=== PATIENT | male | born 1950 | race Caucasian/White ===

== ENCOUNTER → 2018-09-16 | Outpatient (CLI) | payer OTHER | END | disposition home or self-care (01) | LOC: OIH 15:17 | PROVIDERS: ATTEND Family Medicine | DX: M25.571 Pain in right ankle and joints of right foot (principal) | CPT/HCPCS: 73610 ==

== ENCOUNTER → 2022-02-24 | Outpatient (CLI) | payer OTHER | END | disposition home or self-care (01) | LOC: RAH 08:17 | PROVIDERS: ATTEND Physician Assistant Medical | DX: M47.816 Spondylosis without myelopathy or radiculopathy, lumbar region (principal); M48.061 Spinal stenosis, lumbar region without neurogenic claudication; M51.36 Other intervertebral disc degeneration, lumbar region; M48.07 Spinal stenosis, lumbosacral region | CPT/HCPCS: 72148 ==

== ENCOUNTER → 2024-10-21 | Outpatient (CLI) | payer OTHER | END | disposition home or self-care (01) | LOC: SHCH 08:16 | PROVIDERS: ATTEND Student in an Organized Health Care Education/Training Program | DX: R00.2 Palpitations (principal) | CPT/HCPCS: 93306 ==

== ENCOUNTER 2024-11-14 11:18 | Day surgery (SDC) | payer OTHER ==
[2024-11-11 11:03] VITALS: BP 128/56; PULSE 91; RESP 18; TEMP 98.1
[2024-11-11 11:12] LABS: CREATININE 0.8 mg/dL (0.5-1.3); POTASSIUM 4.4 mmol/L (3.5-5.1)
[2024-11-11 11:13] LABS: BASOPHILS # (AUTO) 0.06 K/uL (0.00-0.20); BASOPHILS % (AUTO) 0.8 % (0.0-5.0); EOSINOPHILS # (AUTO) 0.13 K/uL (0.00-0.70); EOSINOPHILS % (AUTO) 1.7 % (0.0-8.0); IMMATURE GRANULOCYTE ABSOLUTE 0.03 K/uL (0-1); LYMPHOCYTES # (AUTO) 2.1 K/uL (1.0-4.8); LYMPHOCYTES % (AUTO) 28.2 % (21.0-51.0); MEAN CORPUSCULAR HGB CONC 33.3 g/dL (32.0-36.0); MEAN CORPUSCULAR VOLUME 99.1 fL (79-99); NEUTROPHILS # (AUTO) 4.2 K/uL (1.8-7.7); NEUTROPHILS % (AUTO) 55.9 % (40.0-77.0); PLATELET COUNT (AUTO) 260 K/uL (130-400); RED BLOOD CELL COUNT(AUTO) 4.64 MIL/uL (4.50-6.20); RED CELL DISTRIBUTION WIDTH 11.9 % (11.0-15.5); WHITE BLOOD COUNT (AUTO) 7.5 K/uL (4.8-10.8)
--- NOTE | 2024-11-11 11:26 | EKG ---
[facility] [place], [place] Test Date: 2024-11-11 Test Time: 11:46:30 Pat Name: EUGENIO NUNEZ Department[facility] Room: Gender: M Imaging Technologist: [id number] : 1950 Requested By: SHARRON SHANKS Order Number: [id number] Reading MD: Rosette Shanks Measurements Intervals [place] Rate: 86 P: 46 HI: 181 QRS: -38 QRSD: 100 T: 4 QT: 392 QTc: 469 Interpretive Statements Sinus rhythm Left axis deviation Low voltage, precordial leads No previous ECG available for comparison Electronically Signed On 11-12-2024 08:45:38 REEL CUTTER by Rosette Shanks Please click the below link to view image of tracing.
[2024-11-11 11:31] LABS: PROTHROMBIN TIME 10.6 SEC (9.6-11.6)
[2024-11-11 11:32] LABS: PARTIAL THROMBOPLASTIN TIME 27.1 SEC (26.3-35.5)
[2024-11-11 11:43] LABS: B-TYPE NATRIURETIC PEPTIDE 14 pg/mL (0-100)
--- NOTE | 2024-11-11 12:45 | HMCIMG ---
CHEST 1VW HISTORY: Preop COMPARISON: 04/01/2018 FINDINGS: A frontal projection of the chest was obtained. No acute pulmonary infiltrates is seen. The heart is normal in size. Prominent interstitial markings are seen. Degenerative changes are seen. No evidence of aortic calcification is seen. IMPRESSION: 1. No acute pulmonary infiltrate is seen.
[2024-11-14] VITALS (11 sets, daily range): BP systolic 122–154; BP diastolic 59–103; PULSE 80–93; RESP 12–20; TEMP 97.5–97.9
[~2024-11-14] VITALS: Ht 182.9 cm; Wt 96.7 kg
[~2024-11-14 11:18] MED LIST: AZEL137S11 NS; GLUCOSAMINE PO; IPRA21SP NS; MONT-39 PO; MULTIVITAMIN 50+ PO; OMEP20TA20 PO; VITA-427 PO
[2024-11-14] MEDS: 0.9%NACL 1000ML 1,000 ML IV SCH (11:42)
[2024-11-14] MEDS ORDERED: ACET-2521 PO (11:48)
[2024-11-14] MEDS ORDERED: niCARDIpine 25MG INJ IV ONE (13:18)
[2024-11-14] MEDS ORDERED: HEParin-NS 1,000 UNIT/500 ML 1,000 ML IV ONE (13:18)
[2024-11-14] MEDS ORDERED: HEParin 10,000 UNIT/10ML (1,000 UNIT/ML) VIAL ONE (13:18)
[2024-11-14] MEDS ORDERED: LIDOCAINE HCL 400MG/20ML VIAL ONE (13:18)
[2024-11-14] MEDS ORDERED: IOHEXOL 350 MG/ML 100ML INFUS..BTL IV ONE (13:18)
[2024-11-14] MEDS ORDERED: MIDAZOLAM HCL 1 MG/ML 2ML VIAL ONE ×2 (13:20→13:42)
[2024-11-14] MEDS ORDERED: VERAPAMIL HCL 2.5 MG/ML VIAL ONE (13:20)
[2024-11-14] MEDS ORDERED: FENTanyl CITRate PF 50 MCG/1 ML 2ML VIAL ONE (13:20)
[2024-11-14] MEDS ORDERED: NITROGLYCERIN 50MG VIAL ONE (13:21)
--- NOTE | 2024-11-14 14:06 | PRN ---
PROCEDURE REPORT DATE OF PROCEDURE: Nov 14, 2024 DRIVER SERVICE TECHNICIAN: [ Phu Shanks MD] PROCEDURE PERFORMED: Conscious sedation Ultrasound guided right radial artery access Selective left coronary artery angiogram Selective right coronary artery angiogram Left heart catheterization TR band 13 liliane over right radial artery INDICATION: PVC burden >8% and dyspnea/chest pain DESCRIPTION OF PROCEDURE: After informed consent was obtained, the patient was prepped and draped in the usual sterile fashion. A 6 [place] arterial sheath was inserted in the right radial artery using ultrasound guidance with first pass wall puncture. The arterial sheath was aspirated and flushed. A 6 [place] JL 3.5 was then advanced to the ascending aorta over an exchange length J-tip guidewire, was aspirated and flushed, and was used for selective coronary angiograms in multiple obliquities. A JR-4 was advanced in a similar fashion to the ascending aorta over the J-tipped guidewire and was used for selective right coronary angiograms in multiple oblique views with findings as outlined below. The JR-4 catheter advanced into the LV and pressures were obtained with a pull-back across the aortic valve. A TR band was placed over right radial artery. FLUOROSCOPY TIME: 2.5 min LEFT HEART HEMODYNAMICS: LVEDP 12 mm Hg and no gradient Ao CORONARY ANGIOGRAM: LEFT MAIN: Patent and 0% stenosis. Gives rise to LCx and LAD. LEFT ANTERIOR DESCENDING: Large vessel giving rise to two Diagonal branches. There is 20-30% prox LAD stenosis just after the first septal artery with GRACE 3 flow. LEFT CIRCUMFLEX: Large, dominant and gives rise to two OM branches. 20-30% proximal stenosis. OM1 has 30-40% proximal stenosis RIGHT CORONARY ARTERY: Nondominant vessel with 30-40% prox-mid stenosis. HEMOSTASIS: TR band 12 liliane over right radial artery INTERVENTIONS: None. COMPLICATIONS: None FINDINGS: Normal coronary anatomy and mild non-obstructive CAD. ESTIMATED BLOOD LOSS: 5 cc RECOMMENDATIONS/INSTRUCTIONS: Aggressive risk factor modification. Start Toprol XL for symptomatic PVCs Consider EP eval for symptomatic PVCs CONTRAST DELIVERED TO PATIENT (mL): 80cc MD TIFF Phillpi JAMES R MD Nov 14, 2024 14:06
[2024-11-14] MEDS ORDERED: DEXTROSE 50%-WATER 50 ML DISP.SYRIN IV PRN (14:30)
[2024-11-14] MEDS ORDERED: 0.9%NACL 1000ML 1,000 ML IV SCH (14:30)
[2024-11-14] MEDS ORDERED: GLUCAGON 1MG KIT 1 MG ML IM PRN (14:30)
--- NOTE | 2024-11-14 14:55 | NUR ---
AMBULATION/ELIMINATION: ASSISTED TO STANDING POSITION WITHOUT COMPLAINING OF DIZZINESS. AMBULATED TO BATHROOM SLOW STEADY GAIT. PT VOIDED QS YELLOW COLOR URINE IN TOILET WITHOUT DIFFICULTY. ASSISTED BACK TO BED.
--- NOTE | 2024-11-14 15:45 | NUR ---
VASC BAND: REMOVED VASC BAND WITH NO ACTIVE BLEEDING PRESENT. CLEANSED AREA WITH CHLOR PREP FOLLOWED BY APPLYING STERILE 2X2 GAUZE THAN 2X2 TEGADERM. NO REDNESS/SWELLING NOTED TO SURROUNDING AREA RIGHT WRIST.
== END 2024-11-14 18:25 | disposition home or self-care (01) ==
LOC: DAH 11:18
PROVIDERS: ATTEND Student in an Organized Health Care Education/Training Program
DX: R06.02 Shortness of breath (principal); R07.9 Chest pain, unspecified; I25.118 Atherosclerotic heart disease of native coronary artery with other forms of angina pectoris; R00.2 Palpitations; I25.2 Old myocardial infarction; E78.5 Hyperlipidemia, unspecified; E66.9 Obesity, unspecified; M06.9 Rheumatoid arthritis, unspecified; I10 Essential (primary) hypertension; Z98.890 Other specified postprocedural states; Z96.653 Presence of artificial knee joint, bilateral; Z98.49 Cataract extraction status, unspecified eye; Z68.29 Body mass index [BMI] 29.0-29.9, adult; Z79.899 Other long term (current) drug therapy
CPT/HCPCS: 80048; 83880; 85025; 85610; 85730; 36415; 71045; 93005; 93458; 82948; A4223 ×3; Q9965; C1769; C1894; A4649; J3010; J3490 ×3; J7030; J1644 ×2; J2250 ×2; Q9967; A4215; A4222; A6260; A4221; A4663; A4216; A6206; A4606; 96360; 96361; 99156; 99157

== ENCOUNTER → 2024-12-26 | Outpatient (CLI) | payer OTHER ==
[~2024-12-26] MED LIST changes: +ACET-2521 PO
[2024-12-26 10:59] LABS: HEMOGLOBIN A1C 5.4 % (4.0-6.0)
[2024-12-26 11:13] LABS: CHOLESTEROL 185 mg/dL (<200); HDL CHOLESTEROL 60 mg/dL (29-71); LDL DIRECT 119 mg/dL (0-99); TRIGLYCERIDES 71 mg/dL (30-200)
== END | disposition home or self-care (01) ==
LOC: LAB 09:06
PROVIDERS: ATTEND Student in an Organized Health Care Education/Training Program
DX: E78.5 Hyperlipidemia, unspecified (principal); I25.83 Coronary atherosclerosis due to lipid rich plaque; Z79.899 Other long term (current) drug therapy
CPT/HCPCS: 36415; 80061; 83036